=== PATIENT | female | born 1995 | race Caucasian/White ===

== ENCOUNTER 2021-07-12 04:46 | Inpatient (IN) | payer BC ==
[~2021-07-12] VITALS: Ht 170.2 cm; Wt 84.1 kg
[2021-07-12] VITALS (52 sets, daily range): BP systolic 72–121; BP diastolic 37–97; PULSE 66–113; TEMP 97.7–98.8
--- NOTE | 2021-07-12 04:55 | NUR ---
0455- PATIENT WHEELED ONTO UNIT WITH SPOUSE BY HER SIDE. ORIENTATED TO ROOM AND CHANGED INTO CLEAN GOWN. PATIENT IS A AT 39[address] CHRISTINE WHO PRESENTS TO UNIT WITH SROM CHECK. REPORTS SROM AT 0350 WITH BIG GUSH OF FLUID THAT CONTINUES TO LEAK. REPORTS GFM, NO BLEEDING, AND OCCASIONAL CONTRACTIONS. 8809- EFM AND TOCO ON AND TRACING. VITALS AND ASSESSMENT COMPLETED. PLAN OF CARE DISCUSSED. PATIENT VERBALIZED UNDERSTANDING WITH NO FURTHER QUESTIONS. CALL LIGHT WITHIN REACH.
[2021-07-12] MEDS ORDERED: PROAIR HFA0.09 MG/AC IH (05:22)
[2021-07-12] MEDS ORDERED: PRENATAL TABLET PO (05:22)
--- NOTE | 2021-07-12 06:25 | NUR ---
0625EFM off and pt ambulatory in halls. Noted to be breathing through occasional contraction. 0702EFM placed and tracing well. 0705SVE attempt by this RN. Pt visibly uncomfortable with exam, and request RN discontinue SVE attempt. SVE attempt stopped. Plan of care reviewed. Patient states she desires epidural. 0710L. Jon [employer] notified. LR bolus initiated.
[2021-07-12 07:25] LABS: BASO # 0.1 K/mm3 (0.0-0.2); BASO % 0.4 % (0.0-2.0); EOS # 0.5 K/mm3 (0.0-0.7); EOS % 3.3 % (0.0-4.0); GRAN # 9.5 K/mm3 (1.4-6.5); GRAN % 69.6 % (42.2-75.2); HEMOGLOBIN 12.2 g/dl (12.5-16.0); LYMPH # 2.5 K/mm3 (1.2-3.4); LYMPH % 18.3 % (20.0-51.0); MEAN CELL VOLUME 91 fl (80.0-100.0); MEAN CORPUSCULAR HEMOGLOBIN 31 pg (27-31); MEAN CORPUSCULAR HGB CONC 35 g/dl (33.0-37.0); MEAN PLATELET VOLUME 9.8 fl (7.4-10.4); MONO % 7.5 % (1.7-9.3); PLATELET COUNT 252 K/mm3 (130-400); RED BLOOD COUNT 3.88 M/mm3 (4.10-5.30); REDCELL DISTRIBUTION WIDTH-CV 13.2 % (11.5-14.5)
[2021-07-12 07:28] LABS: HEMATOCRIT 35.3 % (37.0-47.0)
--- NOTE | 2021-07-12 08:16 | NUR ---
0816Dr. Fany at bedside and reviews plan of care with patient and spouse.
--- NOTE | 2021-07-12 09:00 | NUR ---
0900RN to bedside to place catheter. Pt supine. Difficult to visualize urethra. Pt reports dizziness/lightheadedness. Palor noted. Pt left lateral. BP 72/37. Unable to place catheter due to maternal condition. 0907Patient right lateral. Ephedrine 10mg given. See EMAR. Patient reports dizziness/lightheadedness improved. See vital sign flowsheet.
--- NOTE | 2021-07-12 10:05 | NUR ---
1005Bilateral side lying hip release.
--- NOTE | 2021-07-12 11:10 | NUR ---
1110-This RN monitoring FHR strip at this time while assigned RN on lunch. Late decel in FHR observed by this RN and agian at 1114. Repositoined patient out of LL w/RL in [place] to RL with LL in [place]. FHR decel down to 70bpm following repositioning at 1120. Repositioned back to LL and assigned GREGORIO Saini RN in to patient room. SVE by GREGORIO Saini . Repositioned sitting upright in radha position.
--- NOTE | 2021-07-12 13:00 | NUR ---
1300 Intermittent early and late decels.
--- NOTE | 2021-07-12 14:05 | NUR ---
1405SVE 9/+1. 1407Pitocin to 10mu. 1409FHR decel to 80bmp. Patient left lateral. 1411FHR continues 80bmp. Patient right lateral. LR bolus infusing. 1414Pitocin stopped. Dr. Soares updated on pt. See physician notification. O2 10L via mask. Patient cont. updated on plan of care. 1417FHR returns to baseline 120's. 1422Dbryan Soares updated on pt. See physician notification. 1428Dr. Soares to bedside. SVE by provider 10cm. Patient instructed on pushing with contractions. Practicepush at this time with Dr. Soares at bedside. 1430Catheter removed and esperanza care provided. Patient begins to push with contractions with RN at bedside. Dr. Soares remains at nurses desk. Strong maternal effort. 1450FHR decel to 80's-100's lasting 3.5min. Dr. Soares requested at bedside. Dr. Soares discusses VAVD with pt who agrees to proceed. 1458Vacuum applied to occiput by Dr. Soares 1500Traction to occiput by Dr. Soares via vacuum while pt continues to push with contractions. 1503VAVD of viable male . To mother's chest where dried and stimulated by nursery RN. 1504Cord clamped x2 and cut by father of . Care of assumed by Stan Salazar RN. Cord blood & gases obtained by provider. 1509Spontaneous and intact delivery of placenta. Pitocin to 333ml/hr per orders. Second degree perineal laceration repaired by Dr. Soares. Fundus firm, midline and lochia small. Plan of care and safety precautions reviewed. Pad changed and ice pack to perineum. See doctor dictation, anesthesia record, and nurses notes.
[2021-07-13 04:15] VITALS: BP 98/62; PULSE 72; TEMP 97.9
[2021-07-13 07:25] VITALS: BP 99/62; PULSE 71; TEMP 98
--- NOTE | 2021-07-13 09:45 | NUR ---
pt calls RN into room to assess a blood clot in the toilet. this RN notes a small, barrie sized clot in the toilet. this RN assurese pt that this is a normal sized clot.
[2021-07-13 12:20] VITALS: BP 99/64; PULSE 74; TEMP 97.4
[2021-07-13 15:57] VITALS: BP 101/70; PULSE 77; TEMP 97.7
[2021-07-13 20:30] VITALS: BP 99/64; PULSE 77; TEMP 97.9
[2021-07-14 07:45] VITALS: BP 90/50; PULSE 68; TEMP 97.8
[2021-07-14] MEDS ORDERED: IBU800 M1 PO (10:06)
== END 2021-07-14 11:50 | disposition home or self-care (01) | DRG 807 ==
LOC: LDRO 04:46 → LDR 05:35 → OB 17:15
PROVIDERS: Obstetrics & Gynecology; ADMIT Student in an Organized Health Care Education/Training Program
PROC: 10D07Z6 Extraction of Products of Conception, Vacuum, Via Natural or Artificial Opening (ICD-10-PCS; principal; 2021-07-12)
PROC: 0KQM0ZZ Repair Perineum Muscle, Open Approach (ICD-10-PCS; 2021-07-12)
DX: O76 Abnormality in fetal heart rate and rhythm complicating labor and delivery (principal); Z37.0 Single live birth; O70.1 Second degree perineal laceration during delivery; Z3A.39 39 weeks gestation of pregnancy; Z86.16 Personal history of COVID-19
CPT/HCPCS: J2405; J2590; J7120

== ENCOUNTER 2023-12-18 02:40 | Inpatient (IN) | payer BC ==
[2023-12-18] VITALS (30 sets, daily range): BP systolic 88–153; BP diastolic 50–117; PULSE 63–90; TEMP 98–98.3
[~2023-12-18] VITALS: Ht 172.7 cm; Wt 90.0 kg
[~2023-12-18 02:40] MED LIST: IBU800 M1 PO; PRENATAL TABLET PO; PROAIR HFA0.09 MG/AC IH
[2023-12-18] MEDS ORDERED: LR 1,000 ML IV SCH (03:15)
[2023-12-18 03:21] LABS: BASO % 0.4 % (0.0-2.0); EOS # 0.1 K/mm3 (0.0-0.7); EOS % 0.8 % (0.0-4.0); GRAN # 7.3 K/mm3 (1.4-6.5); HEMATOCRIT 38.2 % (37.0-47.0); HEMOGLOBIN 11.7 g/dl (12.5-16.0); LYMPH # 1.9 K/mm3 (1.2-3.4); LYMPH % 18.6 % (20.0-51.0); MEAN CELL VOLUME 104 fl (80.0-100.0); MEAN CORPUSCULAR HEMOGLOBIN 32 pg (27-31); MEAN CORPUSCULAR HGB CONC 31 g/dl (33.0-37.0); MEAN PLATELET VOLUME 9.7 fl (7.4-10.4); MONO # 0.8 K/mm3 (0.1-0.6); MONO % 7.5 % (1.7-9.3); PLATELET COUNT 202 K/mm3 (130-400); RED BLOOD COUNT 3.69 M/mm3 (4.10-5.30); REDCELL DISTRIBUTION WIDTH-CV 13.5 % (11.5-14.5)
[2023-12-18] MEDS ORDERED: ROPivacaine PF 0.2% 200 ML IV ONE (03:22)
[2023-12-18] MEDS ORDERED: diphenhydrAMINE 50 MG/ML 1 ML VIAL IV PRN (03:45)
[2023-12-18] MEDS ORDERED: diphenhydrAMINE 25 MG CAP PO PRN (03:45)
[2023-12-18] MEDS ORDERED: ePHEDrine 50 MG/10 ML VIAL IV PRN (03:45)
[2023-12-18] MEDS ORDERED: Naloxone 0.4 MG/ML VIAL IV PRN ×2 (03:45→08:00)
[2023-12-18] MEDS ORDERED: Ondansetron 4 MG/2 ML VIAL IV PRN (03:45)
--- NOTE | 2023-12-18 03:45 | NUR ---
0245: G2 L1 pt of Dr Escalante arrives to unit via wheelchair, accompanied by staff. Pt instructed to change into gown. 0250: RN at the bedside, pt assisted into bed and POC discussed with pt and spouse. RN places monitors on the pt as I obtain a hx and current complaint. Pt reports to this RN that she began having ctx at 2200 yesterday evening that were still irregular and would come and go, but at around 0100 the ctx became more intense and regular at 5-7 minutes apart and she reports they were 3-5 minutes apart upon arrival to the hospital. Pt denies any complications with this , denies any loss of fluid or vaginal bleeding and reports good movement. I discuss with the pt that I would like to obtain a cervical exam so that I would be able to know if the ctx she is having is leading to cervical change. Pt agreeable to this plan.
--- NOTE | 2023-12-18 05:15 | NUR ---
LATE DECEL NOTED AFTER PT BLOOD PRESSURE OBSERVED TO BE 89/51. ONE DOSE OF EMERPHED GIVEN AND PT REPOSITIONED TO HER RIGHT SIDE. GOOD RECOVERY OBSERVED.
[2023-12-18] MEDS ORDERED: LR & Oxytocin 500 ML IV ONE (06:15)
--- NOTE | 2023-12-18 06:20 | NUR ---
REPORT RCVD FROM GREGORIO MCFADDEN. ASSUMED CARE OF PATIENT AT THIS TIME. REPOSITIONED PATIENT TO RLS/LL POSITIONING. PER GREGORIO MCFADDEN SVE AT 0545 WAS /-1 INTACT. DISCUSSED PLAN OF CARE WITH PATIENT, PATIENT AND FAMILY VERBALIZED UNDERSTANDING. NO OTHER CONCERNS AT THIS TIME.
--- NOTE | 2023-12-18 07:45 | NUR ---
0701: SVE COMPLETE/+2 SROM AT THIS TIME. REPOSITIONED THE PATIENT TO [facility] AND BEGAN PREP FOR DELIVERY. 0704: NOTIFIED PHYSICIAN TO COME FOR DELIVERY. 0723: AT BEDSIDE, GOWNED AND GLOVED. PT POSITIONED TO SEMIF[facility]LERS WITH STIRRUPS. 0725: DRAPE PLACED BENEATH PATIENT, PT PERICARE COMPLETED BY . 0727: PT BEGINS PUSHING WITH , X4 PUSHES. OF VIABLE FEMALE INFANT WITH NCX1. INFANT STIMULATED AND PLACED ON MATERNAL ABDOMEN PER . AFTER CORD BECAME WHITE AND STOPPED PULSATING, CORD WAS CLAMPED X2 PER AND FOB CUT THE CORD. WAS THEN MOVED UP TO MATERNAL CHEST WHERE CARE OF INFANT WAS ASSUMED BY CHRISTINA,GREGORIO. CORD BLOOD OBTAINED PER , AND PASSED OFF TO THIS RN, PLACED IN A TUBE AND SENT TO LAB WITH GREGORIO ARCHULETA. 0733: OF INTACT PLACENTA PER . PITOCIN BOLUS PER HOSPITAL POLICY STARTED AT THIS TIME, 333ML/HR. ASSESSMENT OF VAGINAL LACERATION. 2ND DEGREE VAGINAL AND LEFT PERIURETHRAL. REPAIR AT THIS TIME. 0743: REPAIR COMPLETE PER , EPIDURAL TURNED OFF AT THIS TIME PER THIS RN. FUNDAL MASSAGE PER . PERICARE COMPLETED PER . PT REPOSITIONED TO [facility] WITH PERIPAD AND ICE PACK TO THE PERINEUM. LOCHIA WNL. QBL ASSESSED PER THIS RN AND : 208ML.
[2023-12-18] MEDS ORDERED: Mag/Al Hydrox/Simeth Susp 30 ML CUP PO PRN (08:00)
[2023-12-18] MEDS ORDERED: Acetaminophen 500 MG TAB PO SCH (08:00)
[2023-12-18] MEDS ORDERED: Sennosides/Docusate 8.6-50 MG TAB PO SCH (08:00)
[2023-12-18] MEDS ORDERED: Loratadine 10 MG TAB PO PRN (08:00)
[2023-12-18] MEDS ORDERED: Ibuprofen 800 MG TAB PO SCH (08:00)
[2023-12-18] MEDS ORDERED: Phenylephrine/Mineral Oil/Petrolatum 57 GM TUBE RC PRN (08:00)
[2023-12-18] MEDS ORDERED: Magnes Hydrox (MOM) 80 MG/ML 30 ML CUP PO PRN (08:00)
[2023-12-18] MEDS ORDERED: Measles/Mumps/Rubella Virus Vaccine Live w Diluent 0.5 ML VIAL SQ SCH (08:00)
[2023-12-18] MEDS ORDERED: Witch Hazel 50% Pads Bulk TUB TP PRN (08:00)
[2023-12-18] MEDS ORDERED: traZODone 50 MG TAB PO PRN (21:00)
[2023-12-19 07:36] VITALS: BP 91/65; PULSE 87; TEMP 98.5
[2023-12-19] MEDS ORDERED: IBU800 M1 PO (10:46)
--- NOTE | 2023-12-19 13:03 | NUR ---
1255: PT. IN STABLE CONDITION. WAQAS SILVAL. PT. AMBULATES OFF UNIT AT DISCHARGE WITH INFANT AND
== END 2023-12-19 12:55 | disposition home or self-care (01) | DRG 768 ==
LOC: LDRO 02:40 → LDR 03:07 → OB 17:10
PROVIDERS: Obstetrics & Gynecology; ADMIT Student in an Organized Health Care Education/Training Program
PROC: 10E0XZZ Delivery of Products of Conception, External Approach (ICD-10-PCS; principal; 2023-12-18)
PROC: 0UQJXZZ Repair Clitoris, External Approach (ICD-10-PCS; 2023-12-18)
PROC: 0KQM0ZZ Repair Perineum Muscle, Open Approach (ICD-10-PCS; 2023-12-18)
PROC: 0UQMXZZ Repair Vulva, External Approach (ICD-10-PCS; 2023-12-18)
DX: O48.0 Post-term pregnancy (principal); Z37.0 Single live birth; Z3A.40 40 weeks gestation of pregnancy; O69.81X0 Labor and delivery complicated by cord around neck, without compression, not applicable or unspecified; F41.9 Anxiety disorder, unspecified; O99.344 Other mental disorders complicating childbirth; J45.909 Unspecified asthma, uncomplicated; O99.52 Diseases of the respiratory system complicating childbirth; O70.1 Second degree perineal laceration during delivery; O76 Abnormality in fetal heart rate and rhythm complicating labor and delivery; O71.82 Other specified trauma to perineum and vulva
CPT/HCPCS: J2590; J2795; J7120